=== PATIENT | female | born 1975 | race Caucasian/White ===

== ENCOUNTER 2023-01-13 12:40 | Emergency (ER) | payer OTHER, SELFPAY ==
[2023-01-13 12:42] VITALS: BP 165/106; PULSE 78; RESP 20; TEMP 36.1; O2SAT 100; BMI 41.5
[2023-01-13 13:10] VITALS: O2SAT 98
--- NOTE | 2023-01-13 13:10 | RAD_ITS ---
STUDY: X-RAY CHEST REASON FOR EXAM: Female, 47 years old. Chest pain. TECHNIQUE: Single frontal view of the chest. COMPARISON: None. FINDINGS: The lungs are clear and expanded. There is no demonstrated pleural abnormality. Normal size heart. Normal mediastinum and selena. Normal visualized pulmonary arteries. Normal visualized aortic arch and descending thoracic aorta. Normal visualized thoracic spine. Normal visualized ribs, clavicles, and shoulders. No abnormality of the visualized soft tissue structures of the upper abdomen. RAD/Chest 1 View (Portable) IMPRESSION: Normal x-ray examination of the chest. Electronically Signed: Fish Santoyo MD at 13:23 EDT ,
[2023-01-13 13:18] LABS: Absolute Lymphocyte Count 2.11 X10^3/uL (0.83-4.51); Absolute Neutrophil Count 5.7 X10^3/uL (2.0-7.7); Basophil# 0.04 X10^3/uL; Basophil% 0.5 % (0-1); Eosinophils% 2.4 % (0-5); Hematocrit 40.9 % (37-47); Hemoglobin 13.5 g/dL (12.0-15.0); Lymphocyte # 2.11 X10^3/ul (0.83-4.51); Lymphocyte % 24.8 % (19-41); Mean Corpuscular Volume 87.8 fL (81-99); Mean Platelet Vol. 11.3 fl (6.2-12.0); Monocyte# 0.45 X10^3/uL; Monocyte% 5.3 % (0-10); NRBC Flagged by Analyzer 0 % (0-5); Neutrophil # 5.68 X10^3/uL (2.7-7.7); Neutrophil % 66.8 % (47-70); Platelet Count 252 K/mm3 (150-450); RBC Distribution Width CV 12.7 % (11.6-14.6); RBC Distribution Width SD 40.6 fl (35.1-43.9); Red Blood Count 4.66 M/mm3 (4.2-5.4); White Blood Count 8.5 K/mm3 (4.4-11.0)
[2023-01-13 13:25] VITALS: BP 147/97; BP 159/107; BP 161/109; PULSE 77; PULSE 82
[2023-01-13 13:33] LABS: Anion Gap 4 (5-15); BUN 8 mg/dL (7-18); Calcium,Total 9.2 mg/dL (8.5-10.1); Chloride 106 mmol/L (98-107); Creatinine, Serum 0.89 mg/dL (0.55-1.02); EST Glomerular Filtration Rate 73 mL/min (>60); Est Glom Filt Rate - Afr Amer 88 mL/min (>60); Estimated Creatinine Clearance 68.93 ml/min; Glucose 101 mg/dL (74-106); Potassium 3.2 mmol/L (3.5-5.1); Sodium Level 139 mmol/L (136-145); Troponin-I HS 4 pg/mL (3.0-54.0)
--- NOTE | 2023-01-13 13:44 | ED.RN ---
THIS RN X1A ATTEMPT FOR IV, BLOOD WORK IBTQINED, IV WAS UNSUCCESSFUL. MD AWARE, REPORTS IV NOT NEEDED AT THIS TIME.
[2023-01-13] MEDS: Potassium Chloride Oral Soln 20 MEQ/15 ML UDC 40 MEQ PO (14:27)
[2023-01-13 14:30] VITALS: BP 138/100; PULSE 85; RESP 17; O2SAT 98
--- NOTE | 2023-01-13 14:35 | EX.ED.DYSGE1 ---
HPI History of Present Illness Chief Complaint: Palpitations Narrative Narrative: Patient presenting with palpitations. She states that started today. She has a history of hypertension and states she was previously on lisinopril. She [facility] to [facility] and does not have any healthcare insurance. She was seen by Addy Richard who discontinued her lisinopril and placed her on metoprolol succinate 25 mg p.o. daily. She does not recall the dose of the lisinopril. She states she was on it for years. She never had a blood pressure really controlled. Patient also states she has a history of undiagnosed anxiety which is likely due to the of her son about a year ago. She has intermittent symptoms of this. She does not see a doctor for this. She is not on any medication for anxiety or depression. Patient denies any cardiac history. No history of DVT/PE and no risk factors. [facility] Medical History FHx: cholecystectomy Hypertension Home Medications metoprolol succinate 25 mg capsule sprinkle, ext. release 24 hr 25 mg PO DAILY 01/13/23 [History Last Taken Unknown] Allergy/AdvReac Type Severity Reaction Status Date / Time No Known Allergies Allergy Verified 01/13/23 12:43 Surgical History H/O: hysterectomy Social History Smoking Status: Never smoker ROS ROS ED Review of Systems ROS Unobtainable: due to encephalopathy Constitutional Constitutional ED: Denies chills or fever(s) Eyes Eyes: Denies change in vision ENT ENT ED: Denies rhinorrhea Cardiovascular Cardiovascular: Reports palpitations and racing heartbeat; Denies chest pain Respiratory/Chest Respiratory/Chest: Denies cough or dyspnea Gastrointestinal Gastrointestinal: Denies abdominal pain Genitourinary Genitourinary ED: Denies dysuria Musculoskeletal Musculoskeletal: Denies arthralgias or back pain Integumentary Denies abscess Neurologic Neurologic: Denies headache(s) or paresthesias Psychiatric Psychiatric: Reports anxiety EXAM Physical Exam Const Vital Signs: 01/13/23 12:42 01/13/23 12:47 01/13/23 13:10 Temperature 96.9 F L Temperature Source Temporal Pulse Rate 78 Pulse Rate [Lying] Pulse Rate [Sitting (for 1 minute prior to obtaining)] Pulse Rate [Standing (for 1 minute prior to obtaining)] Respiratory Rate 20 H Respiratory Effort Normal Non-Labored Blood Pressure 165/106 H Blood Pressure [Lying] Blood Pressure [Sitting (for 1 minute prior to obtaining)] Blood Pressure [Standing (for 1 minute prior to obtaining)] Blood Pressure Mean 125 Blood Pressure Mean [Lying] Blood Pressure Mean [Sitting (for 1 minute prior to obtaining)] Blood Pressure Mean [Standing (for 1 minute prior to obtaining)] Pulse Ox 100 98 Oxygen Delivery Method Room Air Room Air 01/13/23 13:25 01/13/23 14:30 Temperature Temperature Source Pulse Rate 85 Pulse Rate [Lying] 77 Pulse Rate [Sitting (for 1 minute prior to obtaining)] 82 Pulse Rate [Standing (for 1 minute prior to obtaining)] 77 Respiratory Rate 17 Respiratory Effort Blood Pressure 138/100 H Blood Pressure [Lying] 147/97 H Blood Pressure [Sitting (for 1 minute prior to obtaining)] 159/107 H Blood Pressure [Standing (for 1 minute prior to obtaining)] 161/109 H Blood Pressure Mean Blood Pressure Mean [Lying] 113 Blood Pressure Mean [Sitting (for 1 minute prior to obtaining)] 124 Blood Pressure Mean [Standing (for 1 minute prior to obtaining)] 126 Pulse Ox 98 Oxygen Delivery Method Positive well nourished General Appearance ED: NAD HEENT Reports moist mucous membranes Eyes PERRL and EOMs intact bilaterally Neck no lymphadenopathy Chest Wall inspection of chest normal Resp normal respiratory effort and clear to auscultation bilaterally Effort and Inspection: Negative for retractions Auscultation: Negative for rales, rhonchi or wheezes Cardio regular rate and regular rhythm Neuro oriented x3 and CN's II-XII intact bilaterally Sensorium / Orientation: alert Psych mental status grossly normal Skin no rashes or lesions noted General Skin Exam: Negative for jaundice MDM MDM MDM Narrative Medical decision making narrative: Presenting with palpitations. Patient has history of undiagnosed anxiety, palpitations she denies any chest pain. Differential still includes anxiety, pneumonia, acute coronary syndrome, dehydration, electrolyte abnormalities. CBC was obtained to assess white blood cell count, hemoglobin, platelets. BMP to assess renal function and electrolytes. High-sensitivity troponin and EKG were obtained to assess for ischemia. Troponin 4. EKG sinus rhythm with a ventricular to 75 bpm without sign of ischemic change or ectopy on my interpretation. Chest x-ray my interpretation shows no acute process. Patient's symptoms have resolved and has been sitting here. I suspect this is likely anxiety related. No believe she needs a delta troponin. I did recommend that she get follow-up and since she does not health insurance I referred her to Lisa Hernandez. Impression: 1. Palpitations 2. History of anxiety Lab Data Attestation: I reviewed the patient's lab results. Labs: Laboratory Results - last 24 hr 01/13/23 12:55 WBC 8.5 RBC 4.66 Hgb 13.5 Hct 40.9 MCV 87.8 MCH 29.0 MCHC 33.0 RDW Std Deviation 40.6 RDW Coeff of Keri 12.7 Plt Count 252 MPV 11.3 Immature Gran % (Auto) 0.200 Neut % (Auto) 66.8 Lymph % (Auto) 24.8 [place] % (Auto) 5.3 Eos % (Auto) 2.4 Baso % (Auto) 0.5 Absolute Neuts (auto) 5.7 Absolute Lymphs (auto) 2.11 Nucleated RBC % 0 Sodium 139 Potassium 3.2 L Chloride 106 Carbon Dioxide 29.0 Anion Gap 4 L BUN 8 Creatinine 0.89 Estim Creat Clear Calc 68.93 Est GFR (MDRD) Af Amer 88 Est GFR (MDRD) Non-Af 73 BUN/Creatinine Ratio 9.0 L Glucose 101 Calcium 9.2 Troponin I High Sens 4 Radiography Diagnostic Testing: Clinical Impression(s) from Imaging Studies Chest X-Ray 01/13/23 13:10 IMPRESSION: Normal x-ray examination of the chest. Electronically Signed: Fish Santoyo MD at 13:23 EDT , Discharge Plan Triage Chief Complaint: Palpitations ED Provider: Toi Marinelli Dx/Rx/DC Orders Instructions: ED Hypokalemia, ED Palpitations, ED Potassium-Rich Foods Prescriptions: No Action metoprolol succinate 25 mg capsule,sprinkle,ER 24hr 25 mg PO DAILY Patient Comments: pt unsure of dosage. Primary Care Provider: Addy Villa Referrals: Addy Villa DO [Primary Care Provider] - Disposition Disposition: Home, Self Care
== END 2023-01-13 14:35 | disposition home or self-care (01) ==
PROVIDERS: Emergency Provider Student in an Organized Health Care Education/Training Program; Visit Provider Student in an Organized Health Care Education/Training Program
DX: R00.2 Palpitations (principal); F41.9 Anxiety disorder, unspecified; I10 Essential (primary) hypertension; Z90.49 Acquired absence of other specified parts of digestive tract; Z90.710 Acquired absence of both cervix and uterus; Z79.899 Other long term (current) drug therapy
CPT/HCPCS: 71045; 80048; 84484; 85025; 93005; 99284